=== PATIENT | male | born 1985 | race Caucasian/White ===

== ENCOUNTER → 2020-05-15 | Emergency (ER) | payer OTHER ==
[~2020-05-15] VITALS: Ht 167.6 cm; Wt 108.9 kg
[2020-05-15 15:47] VITALS: BP 145/90
--- NOTE | 2020-05-15 16:33 | NUR ---
Patient discharged to home in stable condition. Written and verbal after care instructions given. Patient verbalizes understanding of instruction. Pt ambulatory with a steady gait
== END | disposition home or self-care (01) ==
LOC: ER 18:05
DX: Z20.822 Contact with and (suspected) exposure to COVID-19 (principal)
CPT/HCPCS: 99283; C9803; U0003

== ENCOUNTER 2020-06-07 16:15 | Emergency (ER) | payer OTHER ==
[~2020-06-07] VITALS: Ht 167.6 cm; Wt 108.9 kg
[2020-06-07 16:21] VITALS: BP 133/88
--- NOTE | 2020-06-07 16:43 | NUR ---
COVID SPECIMEN OBTAINED AND SENT TO LAB.
--- NOTE | 2020-06-07 16:43 | NUR ---
Patient discharged to home in stable condition. Written and verbal after care instructions given. Patient verbalizes understanding of instruction.
== END 2020-06-07 16:45 | disposition home or self-care (01) ==
LOC: ER 16:17
DX: Z20.822 Contact with and (suspected) exposure to COVID-19 (principal)
CPT/HCPCS: 99283; C9803; U0003

== ENCOUNTER 2020-07-03 15:42 | Emergency (ER) | payer OTHER ==
[~2020-07-03] VITALS: Ht 167.6 cm; Wt 108.9 kg
[2020-07-03 15:44] VITALS: BP 145/90
--- NOTE | 2020-07-03 15:51 | NUR ---
THE PATIENT BIBS FOR ROUTINE COVID19 TEST. DENIES ANY SYMPTOMS. THE PATIENT IS ALERT AND ORIENTED X4. DENIES SOB. RESPIRATION REGULAR AND UNLABORED. WILL CONTINUE TO MONITOR.
--- NOTE | 2020-07-03 16:00 | NUR ---
Covid swab done and taken it to the lab.
--- NOTE | 2020-07-03 16:14 | NUR ---
Patient discharged to home in stable condition. Written and verbal after care instructions given. Patient verbalizes understanding of instruction. The patient left ER in stable condition.
== END 2020-07-03 16:15 | disposition home or self-care (01) ==
LOC: ER 15:49
DX: Z20.822 Contact with and (suspected) exposure to COVID-19 (principal)
CPT/HCPCS: 99283; C9803; U0003

== ENCOUNTER 2020-07-11 14:46 | Emergency (ER) | payer OTHER ==
[~2020-07-11] VITALS: Ht 167.6 cm; Wt 90.7 kg
[2020-07-11 14:55] VITALS: BP 128/81
--- NOTE | 2020-07-11 15:10 | NUR ---
COVID SPECIMEN COLLECTED AND SENT TO LAB.
--- NOTE | 2020-07-11 15:13 | NUR ---
Patient discharged to home in stable condition. Written and verbal after care instructions given. Patient verbalizes understanding of instruction.
== END 2020-07-11 15:13 | disposition home or self-care (01) ==
LOC: ER 14:49
DX: Z20.822 Contact with and (suspected) exposure to COVID-19 (principal)
CPT/HCPCS: 99283; C9803; U0003

== ENCOUNTER 2020-08-11 02:36 | Emergency (ER) | payer OTHER ==
[~2020-08-11] VITALS: Ht 167.6 cm; Wt 90.7 kg
[2020-08-11 02:36] VITALS: BP 122/65
== END 2020-08-11 03:17 | disposition home or self-care (01) ==
LOC: ER 02:40
DX: Z20.822 Contact with and (suspected) exposure to COVID-19 (principal)
CPT/HCPCS: 99283; C9803; U0003